=== PATIENT | male | born 1990 | race Two or more races ===

== ENCOUNTER → 2016-11-17 | Outpatient (REF) | payer BC | LOC: M SFHCLERA 16:18 | PROVIDERS: ATTEND Nurse Practitioner Family | DX: R30.0 Dysuria (principal); J02.9 Acute pharyngitis, unspecified ==

== ENCOUNTER → 2016-11-17 | Outpatient (CLI) | payer BC ==
--- NOTE | 2016-11-17 17:47 | REP ---
ABDOMINAL SERIES TO INCLUDE PA CHEST, FLAT AND UPRIGHT KUB: INDICATION: Bilateral flank pain, evaluate for kidney stones. COMPARISON: None. FINDINGS: The cardiomediastinal silhouette is normal. Lungs are clear bilaterally. Bones and soft-tissues are within normal limits. There is moderate stool within the right and transverse colon. There is no abnormal air fluid levels or free intraperitoneal air. On the supine KUB, faint 7 mm density seen to the right of the first non-rib bearing lumbar vertebra. As it does not persist, it likely represents fecal material, rather than an obstructing ureteral stone. There is no free subdiaphragmatic air. IMPRESSION: 1. No acute cardiopulmonary process. Moderate stool within the right and transverse colon. Bowel gas pattern is nonspecific. 2. Faint nodular density 7 mm diameter seen to the right of the first non-rib bearing lumbar vertebra. As this does not persist on both flat and upright films , likely represents fecal material rather than obstructing ureteral stone. Consider renal ultrasound and or further imaging if clinically indicated. MTDD
== END ==
LOC: M LRY 16:29
PROVIDERS: ATTEND Nurse Practitioner Family
DX: R10.9 Unspecified abdominal pain (principal)

== ENCOUNTER → 2019-02-23 | Outpatient (CLI) | payer OTHER ==
--- NOTE | 2019-02-23 16:31 | REP ---
CHEST, TWO VIEWS: COMPARISON: 11/17/2016 There is no evidence of acute infiltrate. No pleural effusion is seen. The heart is normal in size. The mediastinal silhouette is unremarkable. The visualized osseous structures are intact. IMPRESSION: No acute pulmonary disease. Electronically Signed by Jeison Álvarez MD 02/26/2019 01:45 P
== END ==
LOC: M LRY 15:16
PROVIDERS: ATTEND Nurse Practitioner Family
DX: R06.02 Shortness of breath (principal)

== ENCOUNTER → 2019-02-23 | Outpatient (REF) | payer OTHER | LOC: M SFHCLERA 15:05 | PROVIDERS: ATTEND Nurse Practitioner Family | DX: R53.81 Other malaise (principal) ==

== ENCOUNTER 2019-11-14 17:19 | Day surgery (SDC) | payer OTHER ==
[~2019-11-14] VITALS: Ht 167.6 cm; Wt 121.8 kg
[2019-11-14] MEDS ORDERED: PANT40TA3 PO (17:40)
[2019-11-14] MEDS ORDERED: MORPHINE 4 MG/ML 1ML VIAL/SYRINGE (J2270) IV ONE (17:45)
[2019-11-14] MEDS ORDERED: ACET650T15 PO (18:27)
[2019-11-14] MEDS ORDERED: ONDA4TAB6 PO (18:27)
[2019-11-14] MEDS ORDERED: CVS10CAP7 PO (18:27)
[2019-11-14] MEDS ORDERED: dexameTHASONE 4 MG/ML 1ML VIAL (J1100) As Ordered ONE (18:48)
[2019-11-14] MEDS ORDERED: propofoL 200 MG/20 ML VIAL As Ordered ONE (18:48)
[2019-11-14] MEDS ORDERED: LIDOCAINE 2% INJ 100 MG/5 ML SDV (FOR ANES.) As Ordered ONE (18:48)
[2019-11-14] MEDS ORDERED: KETOROLAC 60 MG/2 ML VIAL (J1885) As Ordered ONE (18:48)
[2019-11-14] MEDS ORDERED: ROCURONIUM BROMIDE 50 MG/5 ML VIAL As Ordered ONE (18:48)
[2019-11-14] MEDS ORDERED: ONDANSETRON 4MG/2ML VIAL (J2405) As Ordered ONE (18:48)
[2019-11-14] MEDS ORDERED: SUGAMMADEX SODIUM 500 MG/5 ML VIAL (BRIDION) As Ordered ONE (18:48)
[2019-11-14] MEDS ORDERED: MIDAZOLAM INJ 2 MG/2 ML VIAL (J2250) As Ordered ONE (18:50)
[2019-11-14] MEDS ORDERED: fentaNYL 100 MCG/2 ML INJECTION (J3010) As Ordered ONE ×2 (18:50→19:43)
[2019-11-14] MEDS ORDERED: BUPIVACAINE/EPIN 0.25% 30 ML VIAL As Ordered ONE (19:02)
[2019-11-14] MEDS ORDERED: BUPIVACAINE LIPOSOME/PF 1.3% 20ML VIAL (13.3MG/ML)(EXPAREL)(C9290 PER1MG) As Ordered ONE (19:02)
[2019-11-14] MEDS ORDERED: BUPIVACAINE HCL 0.25% 10 ML VIAL As Ordered ONE (19:02)
[2019-11-14] MEDS: KCL 10MEQ/100ML SWI (KRUN) 100 ML IV SCH ×2 (19:07→20:07)
[2019-11-14] MEDS ORDERED: KCL 10MEQ IN STERILE WATER 100ML As Ordered ONE (19:07)
[2019-11-14] MEDS ORDERED: ACETAMINOPHEN 1000MG 100ML IV BTL (OFIRMEV) (J0131 PER 10MG) As Ordered ONE (20:03)
[2019-11-14] MEDS ORDERED: NS 1,000 ML IV SCH (20:20)
[2019-11-14] MEDS ORDERED: NORCO, ANEXSIA 5/325MG TABLET (HYDROcodone/ACETAMINOPHEN) PO PRN ×2 (20:30)
[2019-11-14] MEDS ORDERED: ONDANSETRON 4MG/2ML VIAL (J2405) IV PRN ×2 (20:30→21:00)
[2019-11-14] MEDS ORDERED: IPRATROPIUM 0.5MG/ALBUTEROL 2.5MG INH SOL UD 3ML (DUONEB)(J7620) NEB PRN (20:30)
[2019-11-14] MEDS ORDERED: MORPHINE 2 MG/ML 1ML VIAL (J2270) IV PRN ×2 (20:30→21:00)
[2019-11-14] MEDS ORDERED: LR 1,000 ML IV SCH (21:00)
[2019-11-14] MEDS ORDERED: fentaNYL 100 MCG/2 ML INJECTION (J3010) IV PRN (21:00)
[2019-11-14] MEDS ORDERED: METOCLOPRAMIDE INJ 10MG/2ML VIAL (J2765) IV PRN (21:00)
[2019-11-14] MEDS ORDERED: PERCOCET 5MG/325MG TAB PO PRN (21:00)
[2019-11-14 21:37] VITALS: BP 132/90
[2019-11-14 22:07] VITALS: BP 132/89
[2019-11-14 23:20] VITALS: BP 125/73
[2019-11-15] VITALS (7 sets, daily range): BP systolic 108–129; BP diastolic 62–83
[2019-11-15] MEDS: KETOROLAC 30 MG/ML VIAL (J1885) IV SCH ×4 (00:49→18:02)
[2019-11-15] MEDS: IPRATROPIUM 0.5MG/ALBUTEROL 2.5MG INH SOL UD 3ML (DUONEB)(J7620) NEB SCH ×4 (02:54→21:13)
[2019-11-15] MEDS ORDERED: BISACODYL 5 MG TAB PO ONE (10:00)
[2019-11-15] MEDS: DOCUSATE SODIUM 100 MG CAP PO SCH ×2 (10:19→20:24)
[2019-11-15] MEDS: SENNA 8.6 MG TAB (SENOKOT) PO SCH ×2 (10:20→20:24)
--- NOTE | 2019-11-15 10:48 | RO ---
DATE OF PROCEDURE: 11/14/2019 PREOPERATIVE DIAGNOSIS: Incarcerated umbilical hernia. POSTPROCEDURE DIAGNOSIS: Incarcerated umbilical hernia. PROCEDURE: Repair of incarcerated umbilical hernia. SURGEON: Aung Amin MD ANESTHESIA: General endotracheal anesthesia. ESTIMATED BLOOD LOSS: Minimal. FLUIDS: Crystalloid. BRIEF PROCEDURE SUMMARY: The patient was brought to the operating room and was given general anesthesia. After adequate anesthesia and preoperative antibiotics were given, the patient was prepped and draped in the usual sterile fashion. Next, a supraumbilical incision was made with skin knife. Blunt dissection was carried down to fascia. The patient was significantly obese with a very thick abdominal wall but just above the umbilicus there was a fascial defect were some preperitoneal fat could be appreciated coming through and this was able to be reduced back into the abdominal cavity after a small portion of the fascia inferior to this was incised just a little bit to allow for this to be mobilized better. Prior to the returning this preperitoneal fat into the abdominal cavity, nothing was seen thickened, swollen or indurated in this area. Once I was better to mobilize this preperitoneal fat, it was transected at the level of fascia getting into the peritoneum. There was nice clear fluid within the peritoneum in this area and circumferentially no adhesions were appreciated. No bowel was appreciated within this lumen and the fluid within the hernia sac was clear serous fluid. No hemorrhage was associated on the peritoneum in this area either, suggesting no evidence of strangulated bowel. The umbilicus was transected at its base to better gain access to this area for closure and at the base of the umbilicus was a small fascial defect about 8 mm in size, which was closed with a [id number] 0 Ethibond. This supraumbilical hernia was approximately 1.5 cm, almost 2 cm in size, and I closed this transversely using multiple [id number] 0 Ethibond sutures. The subcutaneous tissue was irrigated. The subcutaneous tissue was brought together with interrupted heavy Vicryl. 3-0 Vicryl was used to close the dermis and 4-0 Vicryl subcuticular was used to approximate the skin. Steri-Strips and dry sterile dressing was applied. The patient was awakened from his anesthesia, brought to the recovery room awake, alert, hemodynamically stable. Sponge and needle counts correct times two.
[2019-11-15] MEDS ORDERED: MOM 30ML SUSPENSION UDC PO ONE (15:00)
[2019-11-16] MEDS: KETOROLAC 30 MG/ML VIAL (J1885) IV SCH ×2 (00:19→05:30)
[2019-11-16] MEDS: IPRATROPIUM 0.5MG/ALBUTEROL 2.5MG INH SOL UD 3ML (DUONEB)(J7620) NEB SCH ×2 (01:34→07:29)
[2019-11-16 05:27] VITALS: BP 124/74
[2019-11-16] MEDS: DOCUSATE SODIUM 100 MG CAP PO SCH (08:38)
[2019-11-16] MEDS: SENNA 8.6 MG TAB (SENOKOT) PO SCH (08:38)
[2019-11-16] MEDS ORDERED: HYDR-3715 PO (11:25)
[2019-11-16] MEDS ORDERED: DOCU100C16 PO (11:25)
== END 2019-11-16 11:35 | disposition home or self-care (01) ==
LOC: M ED 17:19 → M SDC 17:20 → M MS5PR 21:32 → M SDC 11-16 11:35
PROVIDERS: ATTEND Surgery
DX: K42.0 Umbilical hernia with obstruction, without gangrene (principal); E66.9 Obesity, unspecified; Z68.41 Body mass index [BMI] 40.0-44.9, adult; F17.200 Nicotine dependence, unspecified, uncomplicated
CPT/HCPCS: 49587; 88302; 94640; 96374; 96375; 96376; 99284; C9290; J0131; J1100; J1885; J2250; J2270; J2405; J3010

== ENCOUNTER 2020-01-17 07:52 | Day surgery (SDC) | payer OTHER ==
[~2020-01-17] VITALS: Ht 180.3 cm; Wt 121.9 kg
[~2020-01-17 07:52] MED LIST: ACET650T15 PO; CVS10CAP7 PO; DOCU100C16 PO; HYDR-3715 PO; NS 1,000 ML IV ONE; ONDA4TAB6 PO; PANT40TA3 PO
--- NOTE | 2020-01-17 09:16 | ROOR ---
Patient Name: Radu House Procedure Date: 01/17/2020 8:59 AM Date of : 1990 Age: 29 Room: [facility] Gender: Male Note Status: Finalized Procedure: Upper GI endoscopy Indications: Nausea with vomiting Providers: Aung Amin Jr, MD Referring MD: Ellyn Osorio Requesting Provider: Medicines: Propofol per Anesthesia Complications: No immediate complications. Procedure: Pre-Anesthesia Assessment: - Prior to the procedure, a History and Physical was performed, and patient medications and allergies were reviewed. The patient is competent. The risks and benefits of the procedure and the sedation options and risks were discussed with the patient. All questions were answered and informed consent was obtained. Patient identification and proposed procedure were verified by the physician and the nurse in the pre-procedure area and in the procedure room. Mental Status Examination: alert and oriented. Airway Examination: normal oropharyngeal airway and neck mobility. Respiratory Examination: clear to auscultation. CV Examination: normal. ASA Grade Assessment: II - A patient with mild systemic disease. After reviewing the risks and benefits, the patient was deemed in satisfactory condition to undergo the procedure. The anesthesia plan was to use moderate sedation / analgesia (conscious sedation). Immediately prior to administration of medications, the patient was re-assessed for adequacy to receive sedatives. The heart rate, respiratory rate, oxygen saturations, blood pressure, adequacy of pulmonary ventilation, and response to care were monitored throughout the procedure. The physical status of the patient was re-assessed after the procedure. The Endoscope was introduced through the mouth, and advanced to the second part of duodenum. The upper GI endoscopy was accomplished without difficulty. The patient tolerated the procedure well. The upper GI endoscopy was accomplished without difficulty. Findings: The upper third of the esophagus, middle third of the esophagus and lower third of the esophagus were normal. The gastroesophageal junction, cardia, gastric body, prepyloric region of the stomach and pylorus were normal. Diffuse mildly congested mucosa was found in the gastric antrum. Biopsies were taken with a cold forceps for histology. The duodenal bulb, first portion of the duodenum and second portion of the duodenum were normal. Impression: - Normal upper third of esophagus, middle third of esophagus and lower third of esophagus. - Normal gastroesophageal junction, cardia, gastric body, prepyloric region of the stomach and pylorus. - Congestive gastropathy. Biopsied. - Normal duodenal bulb, first portion of the duodenum and second portion of the duodenum. Recommendation: - Discharge patient to home (ambulatory). - Telephone my office for pathology results in 1 week. Aung Amin MD Aung Amin Jr, MD 01/17/2020 9:15:59 AM Electronically signed by Aung Amin Jr, MD Number of Addenda: 0 Note Initiated On: 01/17/2020 8:59 AM Estimated Blood Loss: Estimated blood loss: none.
[2020-01-17] MEDS ORDERED: propofoL 200 MG/20 ML VIAL As Ordered ONE ×2 (09:19→09:40)
[2020-01-17] MEDS ORDERED: LIDOCAINE 2% INJ 100 MG/5 ML SDV (FOR ANES.) As Ordered ONE (09:20)
--- NOTE | 2020-01-17 09:41 | ROOR ---
Patient Name: Radu House Procedure Date: 01/17/2020 8:59 AM Date of : 1990 Age: 29 Room: [facility] Gender: Male Note Status: Finalized Procedure: Colonoscopy Indications: Constipation Providers: Aung Amin Jr, MD Referring MD: Ellyn Osorio Requesting Provider: Medicines: Propofol per Anesthesia Complications: No immediate complications. Procedure: Pre-Anesthesia Assessment: - Prior to the procedure, a History and Physical was performed, and patient medications and allergies were reviewed. The patient is competent. The risks and benefits of the procedure and the sedation options and risks were discussed with the patient. All questions were answered and informed consent was obtained. Patient identification and proposed procedure were verified by the physician and the nurse in the pre-procedure area and in the procedure room. Mental Status Examination: alert and oriented. Airway Examination: normal oropharyngeal airway and neck mobility. Respiratory Examination: clear to auscultation. CV Examination: normal. ASA Grade Assessment: II - A patient with mild systemic disease. After reviewing the risks and benefits, the patient was deemed in satisfactory condition to undergo the procedure. The anesthesia plan was to use moderate sedation / analgesia (conscious sedation). Immediately prior to administration of medications, the patient was re-assessed for adequacy to receive sedatives. The heart rate, respiratory rate, oxygen saturations, blood pressure, adequacy of pulmonary ventilation, and response to care were monitored throughout the procedure. The physical status of the patient was re-assessed after the procedure. The Colonoscope was introduced through the anus and advanced to the cecum, identified by appendiceal orifice and ileocecal valve. The patient tolerated the procedure well. The quality of the bowel preparation was fair. Findings: The rectum appeared normal. Non-bleeding internal hemorrhoids were found during endoscopy. The hemorrhoids were moderate, Grade II (internal hemorrhoids that prolapse but reduce spontaneously) and Grade III (internal hemorrhoids that prolapse but require manual reduction). Multiple hyperplastic polyps were found in the sigmoid colon, descending colon, transverse colon, ascending colon and cecum. The polyps were small in size. These polyps were removed with a hot snare. Resection and retrieval were complete. Impression: - Preparation of the colon was fair. - The rectum is normal. - Non-bleeding internal hemorrhoids. - Multiple small polyps in the sigmoid colon, in the descending colon, in the transverse colon, in the ascending colon and in the cecum, removed with a hot snare. Resected and retrieved. Recommendation: - Discharge patient to home (ambulatory). - Repeat colonoscopy date to be determined after pending pathology results are reviewed for surveillance based on pathology results. Aung Amin MD Aung Amin Jr, MD 01/17/2020 9:40:59 AM Electronically signed by Aung Amin Jr, MD Number of Addenda: 0 Note Initiated On: 01/17/2020 8:59 AM Estimated Blood Loss: Estimated blood loss: none.
[2020-01-17 10:11] VITALS: BP 131/94
== END 2020-01-17 10:12 | disposition home or self-care (01) ==
LOC: M OPP 07:52
PROVIDERS: ATTEND Surgery
DX: K59.00 Constipation, unspecified (principal); R11.2 Nausea with vomiting, unspecified; K29.50 Unspecified chronic gastritis without bleeding; K63.5 Polyp of colon; K64.1 Second degree hemorrhoids; K64.2 Third degree hemorrhoids; K31.89 Other diseases of stomach and duodenum; R12 Heartburn; K21.9 Gastro-esophageal reflux disease without esophagitis; F41.9 Anxiety disorder, unspecified; F32.9 Major depressive disorder, single episode, unspecified; Z87.891 Personal history of nicotine dependence; Z79.899 Other long term (current) drug therapy